=== PATIENT | female | born 1965 | race Two or more races ===

== ENCOUNTER 2017-05-19 08:48 | Outpatient (CLI) | payer OTHER ==
[~2017-05-19 08:48] MED LIST: AMBIEN10 MG; COREG CR20 MG; CYCLOBENZAPRINE10 MG PO; FIORICET 50-301 EACH; GABAPENTIN800 MG PO; GLUCOPHAGE XR500 MG PO; HYZAAR 100-121 UDTAB; INTESTINEX1 CAP PO; INTESTINEX680 MG PO; KLONOPIN1 MG/TAB PO; METFORMIN HYDRO25 GM; NEURONTIN300 MG PO; PHENERGAN25 MG; ZANTAC300 MG PO
== END 2017-05-19 08:52 | disposition home or self-care (01) ==
LOC: LAB 08:48
DX: I10 Essential (primary) hypertension (principal); E11.9 Type 2 diabetes mellitus without complications; E03.8 Other specified hypothyroidism; E78.2 Mixed hyperlipidemia

== ENCOUNTER → 2017-05-27 | Outpatient (CLI) | payer OTHER | END | disposition home or self-care (01) | LOC: NUTRICION 14:00 → PPHC 14:00 | DX: E66.01 Morbid (severe) obesity due to excess calories (principal); E11.69 Type 2 diabetes mellitus with other specified complication; E78.4 Other hyperlipidemia; E11.40 Type 2 diabetes mellitus with diabetic neuropathy, unspecified ==

== ENCOUNTER → 2017-06-17 | Outpatient (CLI) | payer OTHER | END | disposition home or self-care (01) | LOC: NUTRICION 13:19 → PPHC 13:30 | DX: E78.4 Other hyperlipidemia (principal); E13.69 Other specified diabetes mellitus with other specified complication; M13.88 Other specified arthritis, other site; E66.8 Other obesity ==

== ENCOUNTER 2017-08-21 03:50 | Emergency (ER) | payer OTHER ==
[~2017-08-21] VITALS: Ht 157.5 cm; Wt 89.4 kg
[2017-08-21] MEDS ORDERED: SIMVALTA PO (04:08)
[2017-08-21] MEDS ORDERED: ASA81 MG (04:09)
[2017-08-21] MEDS ORDERED: AMITRIPTYLINE H50 MG (04:10)
== END 2017-08-21 10:20 | disposition home or self-care (01) ==
LOC: ER 03:50
DX: R51 Headache (principal)

== ENCOUNTER 2017-10-01 08:24 | Outpatient (CLI) | payer OTHER ==
[~2017-10-01 08:24] MED LIST changes: +AMITRIPTYLINE H50 MG; +ASA81 MG; +SIMVALTA PO
== END 2017-10-01 08:45 | disposition home or self-care (01) ==
LOC: MAMO-SONO 08:24
DX: N62 Hypertrophy of breast (principal)

== ENCOUNTER 2017-11-07 07:21 | Emergency (ER) | payer OTHER ==
[~2017-11-07] VITALS: Ht 154.9 cm; Wt 81.6 kg
[2017-11-07] MEDS ORDERED: COZAAR100 MG (07:41)
[2017-11-07] MEDS ORDERED: TRIGLIDE160 MG (07:44)
[2017-11-07] MEDS ORDERED: ALDACTONE25 MG (07:44)
[2017-11-07] MEDS ORDERED: TUSSIONEX PENN115 ML PO (15:13)
== END 2017-11-07 16:32 | disposition home or self-care (01) ==
LOC: ER 07:21
DX: J22 Unspecified acute lower respiratory infection (principal)

== ENCOUNTER 2018-07-11 09:51 | Outpatient (CLI) | payer OTHER ==
[~2018-07-11 09:51] MED LIST changes: +ALDACTONE25 MG; +COZAAR100 MG; +TRIGLIDE160 MG; +TUSSIONEX PENN115 ML PO
== END 2018-07-11 10:02 | disposition home or self-care (01) ==
LOC: RAD 09:51
DX: M06.89 Other specified rheumatoid arthritis, multiple sites (principal); M45.9 Ankylosing spondylitis of unspecified sites in spine; M45.8 Ankylosing spondylitis sacral and sacrococcygeal region; M17.0 Bilateral primary osteoarthritis of knee

== ENCOUNTER 2018-08-03 08:15 | Outpatient (CLI) | payer OTHER | END 2018-08-03 08:22 | disposition home or self-care (01) | LOC: MAMO-SONO 08:15 | DX: Z12.31 Encounter for screening mammogram for malignant neoplasm of breast (principal); Z87.898 Personal history of other specified conditions; N60.11 Diffuse cystic mastopathy of right breast; N60.12 Diffuse cystic mastopathy of left breast; N95.2 Postmenopausal atrophic vaginitis; R10.2 Pelvic and perineal pain ==

== ENCOUNTER 2018-08-17 09:33 | Outpatient (CLI) | payer OTHER | END 2018-08-17 15:29 | disposition home or self-care (01) | LOC: TOM 09:33 | DX: R10.9 Unspecified abdominal pain (principal); N80.8 Other endometriosis ==

== ENCOUNTER 2018-08-26 16:48 | Outpatient (CLI) | payer OTHER | END 2018-08-26 16:52 | disposition home or self-care (01) | LOC: LAB 16:48 | DX: M19.90 Unspecified osteoarthritis, unspecified site (principal) ==

== ENCOUNTER 2018-09-29 07:43 | Outpatient (CLI) | payer OTHER | END 2018-09-29 11:23 | disposition home or self-care (01) | LOC: LAB 07:43 | DX: D64.0 Hereditary sideroblastic anemia (principal) ==

== ENCOUNTER 2019-01-20 13:14 | Outpatient (CLI) | payer OTHER | END 2019-01-20 13:17 | disposition home or self-care (01) | LOC: RAD 13:14 | DX: M51.36 Other intervertebral disc degeneration, lumbar region (principal); M50.30 Other cervical disc degeneration, unspecified cervical region; Z98.1 Arthrodesis status ==

== ENCOUNTER 2019-06-26 08:31 | Outpatient (CLI) | payer OTHER | END 2019-06-26 08:36 | disposition home or self-care (01) | LOC: RAD 08:31 | DX: M12.89 Other specific arthropathies, not elsewhere classified, multiple sites (principal) ==

== ENCOUNTER 2019-06-30 14:54 | Outpatient (CLI) | payer OTHER | END 2019-06-30 15:01 | disposition home or self-care (01) | LOC: LAB 14:54 | DX: D64.0 Hereditary sideroblastic anemia (principal); J11.1 Influenza due to unidentified influenza virus with other respiratory manifestations ==

== ENCOUNTER 2019-07-16 11:17 | Emergency (ER) | payer OTHER ==
[~2019-07-16] VITALS: Ht 152.4 cm; Wt 90.7 kg
[2019-07-16] MEDS ORDERED: TRAZODONE HCL150 MG (11:58)
[2019-07-16] MEDS ORDERED: PEPCID40 MG (11:58)
[2019-07-16] MEDS ORDERED: ZITHROMAX500 MG PO (18:12)
[2019-07-16] MEDS ORDERED: TUSNEL LIQUID178 ML PO (18:12)
[2019-07-16] MEDS ORDERED: DOLOGEN CAPLET1 EACH PO (18:14)
== END 2019-07-16 18:28 | disposition home or self-care (01) ==
LOC: ER 11:17
DX: J06.9 Acute upper respiratory infection, unspecified (principal); B96.0 Mycoplasma pneumoniae [M. pneumoniae] as the cause of diseases classified elsewhere; R05 Cough; R06.02 Shortness of breath

== ENCOUNTER 2019-11-24 15:28 | Outpatient (CLI) | payer OTHER ==
[~2019-11-24 15:28] MED LIST changes: +DOLOGEN CAPLET1 EACH PO; +PEPCID40 MG; +TRAZODONE HCL150 MG; +TUSNEL LIQUID178 ML PO; +ZITHROMAX500 MG PO
== END 2019-11-24 15:47 | disposition home or self-care (01) ==
LOC: LAB 15:28
PROVIDERS: ATTEND Internal Medicine Cardiovascular Disease
DX: J11.1 Influenza due to unidentified influenza virus with other respiratory manifestations (principal); R05 Cough; N39.0 Urinary tract infection, site not specified; D64.0 Hereditary sideroblastic anemia; R06.2 Wheezing; R50.9 Fever, unspecified

== ENCOUNTER → 2019-12-22 15:47 | Outpatient (CLI) | payer OTHER | END | disposition home or self-care (01) | LOC: LAB 15:47 | PROVIDERS: ATTEND Internal Medicine Cardiovascular Disease | DX: J11.1 Influenza due to unidentified influenza virus with other respiratory manifestations (principal); Z20.828 Contact with and (suspected) exposure to other viral communicable diseases; D64.0 Hereditary sideroblastic anemia; R05 Cough; R06.2 Wheezing; R50.9 Fever, unspecified ==

== ENCOUNTER → 2019-12-27 09:31 | Outpatient (CLI) | payer OTHER | END | disposition home or self-care (01) | LOC: LAB 09:31 | PROVIDERS: ATTEND Internal Medicine Cardiovascular Disease | DX: R05 Cough (principal); J11.1 Influenza due to unidentified influenza virus with other respiratory manifestations; D64.0 Hereditary sideroblastic anemia; R50.9 Fever, unspecified; R06.2 Wheezing ==

== ENCOUNTER → 2020-04-19 | Outpatient (CLI) | payer OTHER | END | disposition home or self-care (01) | LOC: MAMO-SONO 09:11 | PROVIDERS: ATTEND Obstetrics & Gynecology Gynecology | DX: R10.2 Pelvic and perineal pain (principal); N60.11 Diffuse cystic mastopathy of right breast; N60.12 Diffuse cystic mastopathy of left breast; Z12.31 Encounter for screening mammogram for malignant neoplasm of breast ==

== ENCOUNTER 2020-10-03 08:53 | Outpatient (CLI) | payer OTHER | END 2020-10-03 08:54 | disposition home or self-care (01) | LOC: NUCLEAR 08:53 | PROVIDERS: ATTEND Internal Medicine Cardiovascular Disease | DX: I73.9 Peripheral vascular disease, unspecified (principal); I87.2 Venous insufficiency (chronic) (peripheral) ==

== ENCOUNTER → 2020-10-04 | Outpatient (CLI) | payer OTHER | END | disposition home or self-care (01) | LOC: NUCLEAR 09:00 | PROVIDERS: ATTEND Internal Medicine Cardiovascular Disease | DX: I87.2 Venous insufficiency (chronic) (peripheral) (principal) ==

== ENCOUNTER 2021-11-21 09:16 | Outpatient (CLI) | payer OTHER | END 2021-11-21 09:43 | disposition home or self-care (01) | LOC: MAMO-SONO 09:16 | PROVIDERS: ATTEND Internal Medicine Cardiovascular Disease | DX: N63.11 Unspecified lump in the right breast, upper outer quadrant (principal) ==

== ENCOUNTER 2023-10-21 11:15 | Inpatient (IN) | payer OTHER ==
[~2023-10-21] VITALS: Ht 152.4 cm; Wt 79.8 kg
[2023-10-28] MEDS ORDERED: ACETAMINOPHEN-1 EAC2 PO (07:15)
[2023-10-28] MEDS ORDERED: AMOX-CLAV 875-1 EACH PO (07:15)
[2023-10-28] MEDS ORDERED: MEDROLPACK PO (07:15)
[2023-10-28] MEDS ORDERED: NEURONTIN800 MG PO (07:16)
[2023-10-28] MEDS ORDERED: GABAPENTIN100 M2 PO (07:16)
[2023-10-28] MEDS ORDERED: 0.9 % SODIUM CHLORIDE 1,000 ML IV SCH (07:30)
[2023-10-28] MEDS ORDERED: PROMETHAZINE HCL 50 MG/ML AMPUL IM PRN (07:30)
[2023-10-28] MEDS ORDERED: ENALAPRILAT DIHYDRATE 1.25 MG/ML VIAL IV PRN (07:30)
[2023-10-28] MEDS ORDERED: METHYLPREDNISOLONE ACETATE 80 MG/ML VIAL IJ ONE (08:45)
[2023-10-28] MEDS ORDERED: HEMOSTATIC MATRIX WITH THROMBIN KIT TOP ONE (08:45)
[2023-10-28] MEDS ORDERED: CEFAZOLIN SODIUM 2,000 MG in 0.9 % SODIUM CHLORIDE 100 ML IV ONE (08:45)
[2023-10-28] MEDS ORDERED: VANCOMYCIN HCL 1,000 MG VIAL IR ONE (08:45)
[2023-10-28] MEDS ORDERED: METHYLPREDNISOLONE SOD SUCC 125 MG VIAL IV ONE ×2 (08:45)
[2023-10-28] MEDS ORDERED: VANCOMYCIN HCL 1,000 MG in 0.9 % SODIUM CHLORIDE 250 ML IV ONE (08:45)
[2023-10-28] MEDS ORDERED: FAMOtidine 20 MG TABLET PO SCH (09:00)
[2023-10-28] MEDS ORDERED: DOCUSATE SODIUM 100MG CAP PO SCH (09:00)
[2023-10-28] MEDS ORDERED: TAMSULOSIN HCL 0.4 MG CAP PO SCH (09:00)
[2023-10-28] MEDS ORDERED: MORPHINE SULFATE 2 MG,MORPHINE SULFATE 4 MG IV SCH (09:00)
[2023-10-28] MEDS ORDERED: CEFAZOLIN SODIUM 1,000 MG in 0.9 % SODIUM CHLORIDE 50 ML IV SCH (09:00)
[2023-10-28] MEDS ORDERED: VANCOMYCIN HCL 1,000 MG VIAL IV SCH (09:00)
[2023-10-28] MEDS ORDERED: MORPHINE SULFATE 4 MG/ML VIAL IV SCH (09:00)
[2023-10-28] MEDS ORDERED: METHYLPREDNISOLONE SOD SUCC 125 MG VIAL IV SCH (09:00)
[2023-10-28] MEDS ORDERED: GABAPENTIN 800 MG TABLET PO SCH (21:00)
[2023-10-28] MEDS ORDERED: Duloxetine HCl 60 MG CAPSULE.DR PO SCH (21:00)
[2023-10-28] MEDS ORDERED: TEMAZEPAM 15 MG CAPSULE PO SCH (21:30)
[2023-10-29] MEDS ORDERED: SODIUM CHLORIDE 0.45 % 1,000 ML IV SCH
[2023-10-29] MEDS ORDERED: OxyCODONE HCL/APAP UD (PERCOCET) PO PRN (06:01)
[2023-10-29] MEDS ORDERED: IRBESARTAN 150 MG TABLET PO SCH (09:00)
[2023-10-29] MEDS ORDERED: ATORVASTATIN CALCIUM 40 MG TABLET PO SCH (09:00)
[2023-10-29 09:17] LABS: HEMATOCRIT 38.2 % (36.0-45.00); MEAN CELL VOLUME 92.3 fL (80.00-100.00); MEAN CORPUSCULAR HEMOGLOBIN 31.4 pg (27.00-32.0); PLATELET COUNT 292 K/uL (150-450); RED BLOOD COUNT 4.14 M/uL (4.00-6.00); RED CELL DISTRIBUTION WIDTH 13.6 % (11.5-14.5)
[2023-10-29 10:07] LABS: CALCIUM 8.9 mg/dL (8.5-10.1); CREATININE SERUM 0.67 mg/dL (0.55-1.02); GFR 90.72; POTASSIUM 4.6 mEq/L (3.5-5.1)
== END 2023-10-30 20:41 | disposition home or self-care (01) | DRG 455 ==
LOC: O/R 10-28 04:42 → SURH 10-28 07:00 → SURG 10-28 12:11 → MEDI 10-28 12:23
PROVIDERS: ADMIT Orthopaedic Surgery Orthopaedic Surgery of the Spine; ATTEND Orthopaedic Surgery Orthopaedic Surgery of the Spine
PROC: XRGC0R7 Fusion of 2 or more Lumbar Vertebral Joints using Custom-Made Anatomically Designed Interbody Fusion Device, Open Approach, New Technology Group 7 (ICD-10-PCS; 2023-10-28)
PROC: 0ST20ZZ Resection of Lumbar Vertebral Disc, Open Approach (ICD-10-PCS; 2023-10-28)
PROC: 07DR0ZZ Extraction of Iliac Bone Marrow, Open Approach (ICD-10-PCS; 2023-10-28)
PROC: 4A1104G Monitoring of Peripheral Nervous Electrical Activity, Intraoperative, Open Approach (ICD-10-PCS; 2023-10-28)
PROC: 4A12X4Z Monitoring of Cardiac Electrical Activity, External Approach (ICD-10-PCS; 2023-10-28)
PROC: 0SG1071 Fusion of 2 or more Lumbar Vertebral Joints with Autologous Tissue Substitute, Posterior Approach, Posterior Column, Open Approach (ICD-10-PCS; principal; 2023-10-28 07:00)
DX: M43.16 Spondylolisthesis, lumbar region (principal); M48.062 Spinal stenosis, lumbar region with neurogenic claudication; I10 Essential (primary) hypertension

== ENCOUNTER 2023-11-24 09:39 | Outpatient (CLI) | payer OTHER ==
[~2023-11-24 09:39] MED LIST changes: +ACETAMINOPHEN-1 EAC2 PO; +AMOX-CLAV 875-1 EACH PO; +GABAPENTIN100 M2 PO; +MEDROLPACK PO; +NEURONTIN800 MG PO
== END 2023-11-24 09:44 | disposition home or self-care (01) ==
LOC: RAD 09:39
PROVIDERS: ATTEND Orthopaedic Surgery Orthopaedic Surgery of the Spine
DX: Z98.1 Arthrodesis status (principal)

== ENCOUNTER 2024-05-29 09:42 | Emergency (ER) | payer OTHER ==
[~2024-05-29] VITALS: Ht 152.4 cm; Wt 86.2 kg
[2024-05-29 11:18] LABS: HEMATOCRIT 45.9 % (36.0-45.00); HEMOGLOBIN 15.8 g/dL (12.0-15.00); MEAN CORPUSCULAR HEMOGLOBIN 33.8 pg (27.00-32.0); MEAN CORPUSCULAR HGB CONC 34.5 g/dl (32.0-36.0); PLATELET COUNT 214 K/uL (150-450); RED BLOOD COUNT 4.68 M/uL (4.00-6.00); RED CELL DISTRIBUTION WIDTH 16.1 % (11.5-14.5)
[2024-05-29 11:36] LABS: INR 0.99; PARTIAL THROMBOPLASTIN TIME 20.6 SECONDS (22.0-34.0); PROTHROMBIN TIME 10.8 SECONDS (9.0-11.5)
[2024-05-29 12:04] LABS: BILIRUBIN TOTAL 0.53 mg/dL (0.3-1.2); CALCIUM 8.7 mg/dL (8.5-10.1); CREATININE SERUM 0.93 mg/dL (0.55-1.02); GFR 61.92; GLOBULINA 2.5 G/DL (2.4-3.5); POTASSIUM 4.22 mEq/L (3.5-5.1); TOTAL PROTEIN 5.5 gm/dL (6.4-8.2)
[2024-05-29 12:35] LABS: PH,URINE 5.5 (5.0-8.0); URINE APPEARANCE Clear; URINE BILIRRUBIN Negative (NEGATIVE); URINE BLOOD Negative; URINE COLOR Yellow; URINE KETONE Negative (NEGATIVE); URINE LEUKOCYTE Negative; URINE NITRATE Negative; URINE PROTEIN Negative (NEGATIVE); URINE UROBILINOGEN 0.2 E.U./dl
[2024-05-29 12:39] LABS: URINE BACTERIA 406.1 uL (0.0-1933); URINE EPITHELIAL CELLS 5.8 uL (0.0-38.8); URINE RBC 8.6 uL (0.0-20.8); URINE WBC 3.1 uL (0.0-23.2)
[2024-05-29] MEDS ORDERED: INSULIN REGULAR, HUMAN 1,000 UNIT/10 ML UNITS SUBCUTANEO ONE (12:45)
[2024-05-29 13:39] LABS: URINE GLUCOSE >=1000 MG/DL (NEGATIVE)
[2024-05-29] MEDS ORDERED: INSULIN REGULAR, HUMAN 1,000 UNIT/10 ML UNITS SUBCUTANEO STA (16:27)
== END 2024-05-29 19:51 | disposition home or self-care (01) ==
LOC: ER 09:42
PROVIDERS: General Practice
DX: R00.2 Palpitations (principal); I10 Essential (primary) hypertension; Z20.822 Contact with and (suspected) exposure to COVID-19
CPT/HCPCS: 36415; 71046; 93005; 96372; 99283; J1815

== ENCOUNTER 2024-07-23 09:23 | Outpatient (CLI) | payer OTHER | END 2024-07-23 09:27 | disposition home or self-care (01) | LOC: SONOGRAMA 09:23 | PROVIDERS: ATTEND Internal Medicine Cardiovascular Disease | DX: N89.8 Other specified noninflammatory disorders of vagina (principal) ==

== ENCOUNTER 2025-03-01 09:12 | Outpatient (CLI) | payer OTHER | END 2025-03-01 09:28 | disposition home or self-care (01) | LOC: MAMO-SONO 09:12 | PROVIDERS: ATTEND Surgery | DX: N60.11 Diffuse cystic mastopathy of right breast (principal); N60.12 Diffuse cystic mastopathy of left breast; Z12.31 Encounter for screening mammogram for malignant neoplasm of breast ==

== ENCOUNTER 2025-03-02 07:10 | Outpatient (CLI) | payer OTHER | END 2025-03-02 07:11 | disposition home or self-care (01) | LOC: NUCLEAR 07:10 | DX: K21.9 Gastro-esophageal reflux disease without esophagitis (principal); E08.43 Diabetes mellitus due to underlying condition with diabetic autonomic (poly)neuropathy | CPT/HCPCS: 78264; A9541 ==